=== PATIENT | male | born 1960 | race Caucasian/White ===

== ENCOUNTER 2018-07-03 07:03 | Emergency (ER) | payer BC ==
[2018-07-03 07:14] VITALS: BP 179/81
[2018-07-03] MEDS ORDERED: Tetracaine 0.5% OPTH.SOL 4 ML* 1 DROP BTL LEFT EYE ONE (07:21)
[2018-07-03] MEDS ORDERED: Fluorescein Sodium TOPICAL* 1 MG TEST STRIP OPHTHALMIC ONE (07:22)
--- NOTE | 2018-07-03 07:26 | UC ---
Eye Complaint HPI - HPI Summary HPI Summary: 58-year-old male comes in with a chief complaint of left eye irritation and redness and drainage. This started overnight one night ago. Patient reports the quite often at night his eyes or dry and 2 nights ago he does remember rubbing his eyes and that irritated the left I. In the morning the left eye was still irritated. Throughout the day yesterday his eye was red. The light bothers the eyes blinking makes it worse. No complaint of change in vision. He does not wear contacts. - History of Current Complaint Chief Complaint: UCEye Stated Complaint: LT EYE PAIN Time Seen by Provider: 07/03/18 07:16 Pain Intensity: 5 - Allergies/Home Medications Allergies/Adverse Reactions: Allergies Allergy/AdvReac Type Severity Reaction Status Date / Time No Known Allergies Allergy Unverified 07/03/18 07:14 PMH/Surg Hx/FS Hx/Imm Hx Previously Healthy: Yes - Surgical History Surgical History: Yes Surgery Procedure, Year, and Place: LIPOMA FROM NECK, VASCECTOMY, TONSILS, - Family History Known Family History: Positive: Non-Contributory - Social History Alcohol Use: Weekly Substance Use Type: None Smoking Status (MU): Never Smoked Tobacco Review of Systems All Other Systems Reviewed And Are Negative: Yes Constitutional: Positive: Negative Skin: Positive: Negative Eyes: Positive: Drainage, Eye Redness, Photophobia ENT: Positive: Negative Respiratory: Positive: Negative Cardiovascular: Positive: Negative Gastrointestinal: Positive: Negative Motor: Positive: Negative Neurovascular: Positive: Negative Musculoskeletal: Positive: Negative Neurological: Positive: Negative Psychological: Positive: Negative Is Patient Immunocompromised?: No Physical Exam Triage Information Reviewed: Yes Appearance: Well-Appearing, No Pain Distress, Well-Nourished Vital Signs: Initial Vital Signs Temp 98.0 F 07/03/18 07:10 Pulse 90 07/03/18 07:10 Resp 18 07/03/18 07:10 BP 179/81 07/03/18 07:10 Pulse Ox 98 07/03/18 07:10 Vital Signs Reviewed: Yes Eyes: Positive: Conjunctiva Inflamed - lt, Discharge - lt, clear, Other: - NUMBED WITH TETRACAINE; LEFT EYE FLOUECEIN STAIN UPTAKE 1MM OVER THE IRIS AT 5PM. ENT: Negative: Nasal congestion Neck exam: Normal Neck: Positive: Supple Respiratory: Positive: No respiratory distress Musculoskeletal Exam: Normal Musculoskeletal: Positive: Strength Intact, ROM Intact Neurological Exam: Normal Neurological: Positive: Alert, Muscle Tone Normal Psychological: Positive: Age Appropriate Behavior Skin Exam: Normal Eye Complaint Course/Dx - Differential Dx/Diagnosis Provider Diagnosis: Left corneal abrasion Discharge - Sign-Out/Discharge Documenting (check all that apply): Patient Departure All imaging exams completed and their final reports reviewed: No Studies - Discharge Plan Condition: Stable Disposition: HOME Prescriptions: Tobramycin 0.3% OPHTH.EARL* 1 drop LEFT EYE Q4H #1 btl Patient Education Materials: Corneal Abrasion (ED) Referrals: Joaquim Joseph MD [Primary Care Provider] - Additional Instructions: FOLLOW UP WITH OPHTHALMOLOGY TOMORROW IF NOT COMPLETELY IMPROVED. GET RECHECKED SOONER IF YOUR CONDITION WORSENS OR ANY QUESTIONS OR CONCERNS. - Billing Disposition and Condition Condition: STABLE Disposition: Home
== END 2018-07-03 07:40 | disposition home or self-care (01) ==
LOC: UCEAST 07:03
DX: S05.02XA Injury of conjunctiva and corneal abrasion without foreign body, left eye, initial encounter (principal); X58.XXXA Exposure to other specified factors, initial encounter; Y92.9 Unspecified place or not applicable
CPT/HCPCS: 99212; A9270-GY; G0463